=== PATIENT | male | born 1980 | race Hispanic/Latino ===

== ENCOUNTER 2019-11-15 21:12 | Emergency (ER) | payer SELFPAY ==
[~2019-11-15] VITALS: Ht 175.3 cm; Wt 172.4 kg
[2019-11-15] MEDS ORDERED: SODIUM CHLORIDE 0.9% 1000ML 1,000 ML IV STA (22:12)
--- NOTE | 2019-11-15 22:18 | Diagnostic Imaging Report ---
EXAMINATION: CXR 1 W - HOP INDICATION: Dyspnea , short of breath COMPARISON: None FINDINGS: TUBES and LINES: None. LUNGS: Normal lung volumes. Subtle hazy opacities in the mid to lower lungs. PLEURA: No pleural effusion or pneumothorax. HEART AND MEDIASTINUM: The cardiomediastinal silhouette is unremarkable. BONES AND SOFT TISSUES: No acute osseous lesion. Soft tissues are unremarkable. UPPER ABDOMEN: No free air under the diaphragm. IMPRESSION: Subtle hazy opacities in the mid to lower lungs, viral pneumonia is possible. Signed by: Toni Valerio DO on 11/15/2019 10:15 PM
[2019-11-15] MEDS ORDERED: SODIUM CHLORIDE 0.9% 1000ML 1,000 ML ONE (22:20)
[2019-11-15] MEDS ORDERED: CEFTRIAXONE SOD 1 GM/NS 50 ML 50 ML IV ONE (22:43)
[2019-11-15] MEDS ORDERED: CEFTRIAXONE SOD 1 GM VIAL IV ONE (22:45)
--- NOTE | 2019-11-15 23:09 | Emergency Department Note ---
History of Present Illnes History of Present Illness Chief Complaint: General Medicine Complaints History of Present Illness This is a 39 year old male c cc cough and SOB. No fever . Historian: Patient Arrival Mode: Car Onset (how long ago): day(s) (2) Location: chest Quality: dull Radiation: Denies non-radiation, Denies back, Denies neck, Denies extremity, Denies abdomen, Denies periumbilical, Denies flank, Denies proximal, Denies distal, Denies other Severity: moderate Onset quality: gradual Duration (how long): day(s) (2) Timing of current episode: intermittent Progression: waxing and waning Chronicity: new Context: Denies recent illness, Denies recent surgery, Denies recent immobilization, Denies recent travel, Denies trauma/injury, Denies new medications, Denies hx of DVT/PE, Denies non-compliance w/ medications, Denies other Relieving factors: none Exacerbating factors: none Associated symptoms: Reports cough, Reports shortness of breath; Denies denies other symptoms, Denies confusion, Denies chest pain, Denies diaphoresis, Denies fever/chills, Denies headaches, Denies loss of appetite, Denies malaise, Denies nausea/vomiting, Denies rash, Denies seizure, Denies syncope, Denies weakness, Denies other Past Medical/Family History Physician Review I have reviewed the patient's past medical and family history. Any updates have been documented here. Past Medical History Recent Fever: No Clinical Suspicion of Infectio: No New/Unexplained Change in Ment: No Past Medical History: Anxiety Past Surgical History: None Social History Smoking Cessation: Never Smoker Alcohol Use: None Any Illegal Drug Use: No Physically hurt or threatened: No Other Any Pre-Existing Lines (PICC,: No Review of Systems Review of Systems Constitutional: Reports no symptoms EENTM: Reports no symptoms Cardiovascular: Reports no symptoms Respiratory: Reports as per HPI Gastrointestinal: Reports no symptoms Genitourinary: Reports no symptoms Musculoskeletal: Reports no symptoms Integumentary: Reports no symptoms Neurological: Reports no symptoms Psychological: Reports no symptoms Endocrine: Reports no symptoms Hematological/Lymphatic: Reports no symptoms Physical Exam Related Data Allergies: Coded Allergies: No Known Drug Allergies (Verified Allergy, Unknown, 11/15/19) Triage Vital Signs Vital Signs Date Time Temp Pulse Resp B/P (MAP) Pulse Ox O2 Delivery O2 Flow Rate FiO2 11/15/19 21:20 97.1 114 18 132/79 96 Room Air Vital signs reviewed: Yes Physical Exam CONSTITUTIONAL Constitutional: Present well-developed, Present well-nourished HENT HENT: Present normocephalic, Present atraumatic, Present oropharynx clear/moist, Present nose normal HENT L/R: Present left ext ear normal, Present right ext ear normal EYES Eyes: Reports PERRL, Reports conjunctivae normal NECK Neck: Present ROM normal PULMONARY Pulmonary: Present effort normal, Present rhonchi (RLL) CARDIOVASCULAR Cardiovascular: Present regular rhythm, Present heart sounds normal, Present capillary refill normal, Present normal rate GASTROINTESTINAL Abdominal: Present soft, Present nontender, Present bowel sounds normal GENITOURINARY Genitourinary: Present exam deferred SKIN Skin: Present warm, Present dry MUSCULOSKELETAL Musculoskeletal: Present ROM normal NEUROLOGICAL Neurological: Present alert, Present oriented x 3, Present no gross motor or sensory deficits PSYCHOLOGICAL Psychological: Present mood/affect normal, Present judgement normal Results Laboratory Lab results reviewed: Yes Imaging Imaging results reviewed: Yes Assessment & Plan Medical Decision Making MDM BRONCHITIS PNEUMONIA Reassessment Reassessment time: 23:08 Reassessment BETTER Assessment & Plan Final Impression: (1) Pneumonia (2) Dyspnea Depart Disposition: HOME, SELF-CARE Last Vital Signs Date Time Temp Pulse Resp B/P (MAP) Pulse Ox O2 Delivery O2 Flow Rate FiO2 11/15/19 21:20 97.1 114 18 132/79 96 Room Air Medications in the ED Sodium Chloride 1,000 ml @ 0 mls/hr Q0M STAT IV Last administered on 11/15/19at 22:16; Admin Dose 1,000 MLS/HR; Start 11/15/19 at 22:12; Stop 11/15/19 at 22:13; Status DC Sodium Chloride 1,000 ml @ ud STK-MED ONCE .ROUTE ; Start 11/15/19 at 22:20; Stop 11/15/19 at 22:17; Status DC Ceftriaxone Sodium 1 gm ONCE ONCE IV Last administered on 11/15/19at 22:43; Admin Dose 1 GM; Start 11/15/19 at 22:45; Stop 11/15/19 at 22:46; Status UNV Ceftriaxone Sodium 50 ml @ ud STK-MED ONCE IV ; Start 11/15/19 at 22:43; Stop 11/15/19 at 22:38; Status DC SARAH CELAYA MD Nov 15, 2019 23:09
[2019-11-15] MEDS ORDERED: AUGMENTIN 500-1 EACH PO (23:15)
[2019-11-15 23:23] VITALS: BP 102/69
== END 2019-11-15 23:24 | disposition home or self-care (01) ==
LOC: FSED 21:25
DX: J18.9 Pneumonia, unspecified organism (principal); R06.00 Dyspnea, unspecified; R05 Cough; F41.9 Anxiety disorder, unspecified
CPT/HCPCS: 71045; 80053; 83880; 85025; 99283; J0696; J7030